=== PATIENT | female | born 1965 | race Caucasian/White ===

== ENCOUNTER 2019-02-20 07:21 | Emergency (ER) | payer MEDICAID, OTHER ==
[~2019-02-20] VITALS: Ht 154.9 cm; Wt 62.5 kg
[~2019-02-20 07:21] MED LIST: CYCL10TA7 PO; MED4DP PO; NAPR-985 PO; NITR-58 PO; TRAM50TA2 PO
[2019-02-20 07:25] VITALS: Ht 154.9 cm; Wt 62.5 kg
[2019-02-20] MEDS ORDERED: KETOROLAC 60 MG INJ IM STA (07:37)
[2019-02-20] MEDS ORDERED: DEXAMETHASONE 10 MG/ML 1 ML INJ IM ONE (08:00)
[2019-02-20 08:26] VITALS: BP 128/76; PULSE 79; RESP 18
== END 2019-02-20 08:28 | disposition home or self-care (01) ==
LOC: FTE 07:21
DX: M54.5 Low back pain (principal)
CPT/HCPCS: 81003; 96372; J1100; J1885; Z7502